=== PATIENT | female | born 1960 | race Caucasian/White ===

== ENCOUNTER → 2019-12-22 | Outpatient (CLI) | payer OTHER, SELFPAY ==
[2019-12-22 08:52] LABS: Hemoglobin A1c 6.3 % (4.2-6.3)
[2019-12-22 09:25] LABS: ALB/GLOB Ratio 0.9 RATIO (0.9-2.4); AST(SGOT) 21 U/L (15-37); Alanine Aminotransfer ALT/SGPT 26 U/L (13-56); Albumin, Serum 4.1 g/dL (3.2-5.0); Alkaline Phosphatase 94 U/L (45-117); Anion Gap 4 (5-15); BUN 25 mg/dL (7-18); BUN/Creat Ratio 27.4 RATIO (10-20); Calcium,Total 8.9 mg/dL (8.5-10.1); Chloride 106 mmol/L (98-107); Cholesterol 270 mg/dL (200); Creatinine, Serum 0.91 mg/dL (0.55-1.02); EST Glomerular Filtration Rate 67 mL/min (>60); Est Glom Filt Rate - Afr Amer 81 mL/min (>60); Globulin 4.7 g/dL (2.2-4.2); Glucose 105 mg/dL (74-106); High Density Lipoprotein 47 mg/dL; Protein, Total 8.8 g/dL (6.4-8.2); Sodium Level 140 mmol/L (136-145); Triglycerides 125 mg/dL; Very Low Density Lipoprotein 25 mg/dL (5-40)
== END | disposition home or self-care (01) ==
PROVIDERS: PCP Family Medicine; Referring Provider Family Medicine; Visit Provider Family Medicine
DX: Z00.00 Encounter for general adult medical examination without abnormal findings (principal)
CPT/HCPCS: 36415; 80053; 80061; 83036; 84443

== ENCOUNTER → 2020-03-01 | Outpatient (CLI) | payer OTHER, SELFPAY ==
[2020-03-01 11:03] LABS: Cholesterol 242 mg/dL (200); High Density Lipoprotein 45 mg/dL; Thyroid Stim Hormone (TSH) 0.59 uIU/mL (0.358-3.74); Triglycerides 159 mg/dL; Very Low Density Lipoprotein 32 mg/dL (5-40)
== END | disposition home or self-care (01) ==
LOC: LAB 08:54
PROVIDERS: PCP Family Medicine; Referring Provider Family Medicine; Visit Provider Family Medicine
DX: E03.4 Atrophy of thyroid (acquired) (principal); E78.00 Pure hypercholesterolemia, unspecified
CPT/HCPCS: 36415; 80061; 84443

== ENCOUNTER 2021-06-25 11:26 | Emergency (ER) | payer OTHER, SELFPAY ==
[2021-06-25 11:27] VITALS: BP 132/78; PULSE 83; RESP 16; TEMP 36.7; O2SAT 82; BMI 38.2
[2021-06-25 11:36] VITALS: O2SAT 92
--- NOTE | 2021-06-25 12:41 | EKG12_ITS ---
Test Reason : Blood Pressure : / mmHG Vent. Rate : 074 BPM Atrial Rate : 074 BPM P-R Int : 184 ms QRS Dur : 084 ms QT Int : 436 ms P-R-T Axes : 005 -14 014 degrees QTc Int : 483 ms Normal sinus rhythm Poor R wave progression Confirmed by KOLBY YOUNG, RODERICK ([id number]), photography editor DUKE GUTIERRES ([id number]) on 06/29/2021 11:45:13 AM Referred By: NIESHA Confirmed By:RODERICK JARRETT MD
--- NOTE | 2021-06-25 12:57 | NURSING ---
no old ekgs
[2021-06-25 13:02] LABS: Absolute Lymphocyte Count 1.12 X10^3/uL (0.83-4.51); Absolute Neutrophil Count 2.6 X10^3/uL (2.0-7.7); Basophil# 0.02 X10^3/uL; Basophil% 0.5 % (0-1); Hematocrit 41.7 % (37-47); Hemoglobin 13.8 g/dL (12.0-15.0); Lymphocyte # 1.12 X10^3/ul (0.83-4.51); Lymphocyte % 27.9 % (19-41); Mean Corp Hgb Conc 33.1 g/dL (32-36); Mean Corpuscular Volume 93.7 fL (81-99); Mean Platelet Vol. 11.5 fl (6.2-12.0); Monocyte# 0.28 X10^3/uL; NRBC Flagged by Analyzer 0 % (0-5); Neutrophil # 2.55 X10^3/uL (2.7-7.7); Neutrophil % 63.6 % (47-70); POSITIVE MORPHOLOGY YES; Platelet Count 114 K/mm3 (150-450); RBC Distribution Width CV 12.9 % (11.6-14.6); Red Blood Count 4.45 M/mm3 (4.2-5.4)
[2021-06-25 13:13] LABS: Anion Gap 4 (5-15); BUN 19 mg/dL (7-18); Calcium,Total 8.8 mg/dL (8.5-10.1); Chloride 101 mmol/L (98-107); Creatinine, Serum 0.95 mg/dL (0.55-1.02); EST Glomerular Filtration Rate 63 mL/min (>60); Est Glom Filt Rate - Afr Amer 77 mL/min (>60); Estimated Creatinine Clearance 51.44 ml/min; Glucose 108 mg/dL (74-106); Magnesium 2.1 mg/dL (1.6-2.6); Potassium 3.6 mmol/L (3.5-5.1); Sodium Level 134 mmol/L (136-145); Troponin-I HS 7 pg/mL (3.0-54.0)
[2021-06-25 13:14] LABS: Differential Indicated SCAN CRITERIA MET
[2021-06-25 13:22] LABS: Differential Comment SCANNED
[2021-06-25 13:23] LABS: Reactive Lymphocyte 1+
[2021-06-25 13:28] LABS: BNP,B-Type NATRIURETIC PEPTIDE 22.6 pg/mL (0-100)
--- NOTE | 2021-06-25 13:51 | RAD_ITS ---
STUDY: X-RAY CHEST REASON FOR EXAM: Female, 61 years old. Cough and weakness. TECHNIQUE: Single AP portable view of the chest. COMPARISON: None. FINDINGS: EKG electrodes are seen. Patchy bibasilar infiltrates. There is no demonstrated pleural abnormality. Normal size heart. Normal mediastinum and duncan. Normal visualized pulmonary arteries. Normal visualized aortic arch and descending thoracic aorta. Normal visualized thoracic spine. Normal visualized ribs, clavicles, and shoulders. There is no demonstrated abnormality of the visualized soft tissue structures of the upper abdomen. RAD/Chest 1 View (Portable) IMPRESSION: Patchy bibasilar infiltrates. Electronically Signed: Cosmo Humphrey MD at 14:19 EDT , Service support ,
[2021-06-25] MEDS: dexAMETHasone 10 MG/ML Vial IV (13:52)
[2021-06-25] MEDS: 0.9% Normal Saline 1,000 ML 999 ML IV (13:52)
[2021-06-25 13:55] VITALS: BP 97/59; PULSE 72; RESP 16; O2SAT 91
--- NOTE | 2021-06-25 14:44 | EDS_ITS ---
HPI History of Present Illness Chief Complaint: General Illness Narrative Narrative: Patient is a 61-year-old female who states for about 10 days now she has had congestion with cough. She reports she has had worsening shortness of breath without joint aches/myalgias and mild confusion. She denies any known sick exposures a history of lung disorder but with her worsening symptoms presents for evaluation. PFSH PFSH Home Medications dexamethasone [Decadron] 6 mg PO DAILY #10 tab 06/25/21 [Rx Last Taken Unknown] doxycycline hyclate 100 mg PO BID #20 tab 06/25/21 [Rx Last Taken Unknown] Allergy/AdvReac Type Severity Reaction Status Date / Time No Known Allergies Allergy Verified 06/25/21 11:31 Surgical History (Updated 06/25/21 @ 13:58 by Benedicto García) History of Social History Smoking Status: Never smoker ROS ROS ED Constitutional Constitutional ED: Denies chills or fever(s) ENT ENT ED: Denies sore throat Cardiovascular Cardiovascular: Denies chest pain Respiratory/Chest Respiratory/Chest: Reports cough and dyspnea Gastrointestinal Gastrointestinal: Denies abdominal pain, diarrhea, nausea or vomiting Genitourinary Genitourinary ED: Denies dysuria Musculoskeletal Musculoskeletal: Reports arthralgias and myalgias Integumentary Denies rash Neurologic Neurologic: Denies headache(s) Hematologic/Lymphatic Hematologic/Lymphatic: Denies easy bleeding or easy bruising EXAM Physical Exam Const Vital Signs: 06/25/21 11:27 06/25/21 11:36 06/25/21 13:55 Temperature 98.1 F Temperature Source Temporal Pulse Rate 83 72 Respiratory Rate 16 16 Blood Pressure 132/78 H 97/59 L Blood Pressure Mean 96 71 Pulse Ox 82 92 91 Oxygen Delivery Method Room Air Nasal Cannula Nasal Cannula Oxygen Flow Rate (L/min) 4 3 Positive well nourished and well developed General Appearance ED: well developed HEENT Reports moist mucous membranes HEENT Narrative: No tongue or lip swelling no oral lesions no airway edema or compromise. There is cobblestoning noted in the posterior pharynx consistent with sinus drainage Eyes PERRL and EOMs intact bilaterally Neck supple and no JVD Neck Narrative: Positive anterior cervical lymphadenopathy Chest Wall inspection of chest normal Resp Resp Narrative: Breath sounds are diminished throughout with faint expiratory wheeze and rhonchi in bilateral bases Cardio regular rate and regular rhythm GI normal to inspection, nondistended, normoactive bowel sounds, non-tender and non-distended Auscultation: normoactive bowel sounds Palpation: soft Extremity normal to inspection Extremity Narrative: No asymmetric edema no pitting edema negative Homans' sign bilaterally Neuro oriented x3 and CN's II-XII intact bilaterally Sensorium / Orientation: alert Psych mental status grossly normal Skin no rashes or lesions noted MDM MDM MDM Narrative Medical decision making narrative: Patient presented to the ER afebrile but as low as 82% on room air. Her constellation of symptoms is consistent with an infection mainly Covid and therefore basic work-up was obtained. EKG was sinus rhythm she had no elevation to her troponin. Her white count is technically low at 4 but she does not have any further changes to suggest acute sepsis. Patient was placed on nasal cannula oxygen and between 2 and 4 L this brought her saturations up to 96 to 98%. Therefore at this time as she does not have c hanges to suggest acute coronary injury or septicemia she can be prescribed oxygen for home as well as antibiotics and can return if symptoms fail to improve. Lab Data Labs: Laboratory Results - last 24 hr 06/25/21 06/25/21 06/25/21 11:55 11:55 11:55 WBC 4.0 L RBC 4.45 Hgb 13.8 Hct 41.7 MCV 93.7 MCH 31.0 MCHC 33.1 RDW Std Deviation 44.0 H RDW Coeff of Obey 12.9 Plt Count 114 L MPV 11.5 Immature Gran % (Auto) 1.000 H Neut % (Auto) 63.6 Lymph % (Auto) 27.9 [place] % (Auto) 7.0 Eos % (Auto) 0.0 Baso % (Auto) 0.5 Absolute Neuts (auto) 2.6 Absolute Lymphs (auto) 1.12 Nucleated RBC % 0 Differential Comment SCANNED Diff Path Review May foll Reactive Lymphocytes 1+ Sodium 134 L Potassium 3.6 Chloride 101 Carbon Dioxide 29.0 Anion Gap 4 L BUN 19 H Creatinine 0.95 Estim Creat Clear Calc 51.44 Est GFR (MDRD) Af Amer 77 Est GFR (MDRD) Non-Af 63 BUN/Creatinine Ratio 20.0 Glucose 108 H Calcium 8.8 Magnesium 2.1 Troponin I High Sens 7 B-Natriuretic Peptide 22.6 Radiography Diagnostic Testing: Radiology Impression Chest X-Ray 06/25/21 13:51 IMPRESSION: Patchy bibasilar infiltrates. Electronically Signed: Cosmo Humphrey MD at 14:19 EDT , Service support , Discharge Plan Triage Chief Complaint: General Illness ED Provider: Nahid Méndez Dx/Rx/DC Orders Clinical Impression: Pneumonia, Hypoxia Instructions: ED Pneumonia (Adult) Prescriptions: New doxycycline hyclate 100 mg tablet 100 mg PO BID Qty: 20 RF: 0 dexamethasone [Decadron] 6 mg tablet 6 mg PO DAILY Qty: 10 RF: 0 Primary Care Provider: Amos Buenrostro Referrals: Amos Buenrostro MD [Primary Care Provider] - Disposition Disposition: Home, Self Care
[2021-06-25 14:57] VITALS: BP 138/79; PULSE 88; RESP 19; O2SAT 95
[2021-06-25] MEDS: Ceftriaxone 1 GM/50 ML BAG IV (14:57)
--- NOTE | 2021-06-25 15:43 | CM.ED ---
Addendum entered by Joan Cantu 06/25/21 16:34: TONIA called Lisa at [facility] She said that the quickscript with the oxygen stats was enough documentation for need of oxygen. No other information needed. Joan ASHER Addendum entered by Joan Cantu 06/25/21 15:45: TONIA spoke to Lisa at [facility]. She said to provide patient with the oxygen tank from [facility] and have patient call [facility] when she gets home to schedule a tech to come to the house. TONIA received confirmation email from [facility]. No further SW needs at this time Plan: Home with home oxygen tank (from [facility]) Joan BROOKE Original Note: TONIA Note Referral Source: process safety engineer Reason: Home Oxygen SW called [place] at [facility] and made referral. TONIA faxed referral packet that includes face to face, demographics, insurance and oxygimetry stats. Confirmation email received. TONIA spoke to
[2021-06-25 15:48] VITALS: BP 105/69; PULSE 67; RESP 13; O2SAT 94
[2021-06-25 18:37] VITALS: BP 97/67; BP 97/97; PULSE 68; RESP 20; O2SAT 91
[2021-06-26 12:09] LABS: Pathologist Review Reviewed
--- NOTE | 2021-06-26 13:30 | CASEMGMT ---
[facility] COVID ED Home O2: This RN HIRAM attempted to contact pt regarding follow-up from pt's discharge from the ED with home O2. Nonidentifying voicemail was received and nondescript message left requesting a return call. Lety Demarco RN CM
--- NOTE | 2021-06-29 12:38 | CASEMGMT ---
[facility] ED COVID Home O2 Follow-up: This RN HIRAM attempted to conact pt via phone in follow-up to pt's discharge home from the ED with home O2. A nondescript voicemail was received and a nondescript voicmail message was left requesting a return call. Lety Demarco RN CM
== END 2021-06-25 18:38 | disposition home or self-care (01) ==
PROVIDERS: Emergency Provider Emergency Medicine; PCP Family Medicine
DX: J18.9 Pneumonia, unspecified organism (principal); R09.02 Hypoxemia
CPT/HCPCS: 71045; 80048; 83735; 83880; 84484; 85025; 87426; 93005; 96361; 96365; 96367; 96375; 99283; J7030; J7050; A4216

== ENCOUNTER → 2021-07-21 16:38 | Outpatient (CLI) | payer OTHER, SELFPAY ==
--- NOTE | 2021-07-21 16:42 | RAD_ITS ---
STUDY: X-RAY CHEST REASON FOR EXAM: Female, 61 years old. PNEUMONIA OF BOTH LOWER LOBES DUE TO INFECTIOUS ORGANISM TECHNIQUE: PA and lateral views of the chest. COMPARISON: 06/25/2021. FINDINGS: Diffusely increased interstitial markings without focal consolidation may represent infection the appropriate clinical setting. Normal size heart. Normal mediastinum and duncan. Normal visualized pulmonary arteries. Normal visualized aortic arch and descending thoracic aorta. Normal visualized thoracic spine. Normal visualized ribs, clavicles, and shoulders. There is no demonstrated abnormality of the visualized soft tissue structures of the upper abdomen. RAD/Chest PA and Lateral IMPRESSION: Diffusely increased interstitial markings without focal consolidation may represent infection the appropriate clinical setting. Electronically Signed: Wade Andrew MD at 20:17 EDT Tel , Service support ,
== END ==
PROVIDERS: PCP Family Medicine; Referring Provider Family Medicine; Visit Provider Family Medicine
DX: J18.9 Pneumonia, unspecified organism (principal)
CPT/HCPCS: 71046

== ENCOUNTER 2022-10-31 14:54 | Emergency (ER) | payer OTHER, SELFPAY ==
[2022-10-31 14:55] VITALS: BP 166/118; PULSE 84; RESP 18; TEMP 36.2; O2SAT 99; BMI 40.7
--- NOTE | 2022-10-31 15:05 | EKG12_ITS ---
Test Reason : CP Blood Pressure : / mmHG Vent. Rate : 071 BPM Atrial Rate : 071 BPM P-R Int : 170 ms QRS Dur : 074 ms QT Int : 440 ms P-R-T Axes : 027 -10 038 degrees QTc Int : 478 ms Normal sinus rhythm Septal infarct , age undetermined Abnormal ECG Confirmed by ESTEFANI YOUNG, JAMES ([id number]), editor house organ DUKE GUTIERRES ([id number]) on 11/02/2022 9:29:00 AM Referred By: INA Confirmed By:JAMES JARA MD
--- NOTE | 2022-10-31 15:07 | ED.VIS.DYS ---
HPI History of Present Illness Chief Complaint: Shortness of Breath Narrative Narrative: Patient presents with about a week of dyspnea, developed left sided chest pain 2 or 3 days ago and now she is noticing a rash. No fevers or chills. She did have chickenpox when she was a child. No recent fevers chills. No cough. There is no pleuritic component. No lower extremity edema or calf pain. No DVT or PE risk factors. PFSH PFSH Home Medications dexamethasone 6 mg tablet (Decadron) 6 mg PO DAILY #10 tabs 06/25/21 [Rx Last Taken Unknown] doxycycline hyclate 100 mg tablet 100 mg PO BID #20 tabs 06/25/21 [Rx Last Taken Unknown] acyclovir 800 mg tablet 800 mg PO 5X/DAY #35 tabs 10/31/22 [Rx Last Taken Unknown] oxycodone-acetaminophen 5 mg-325 mg tablet (Percocet) 1 tab PO Q6H PRN pain 3 days #12 tabs 10/31/22 [Rx Last Taken Unknown] Allergy/AdvReac Type Severity Reaction Status Date / Time No Known Allergies Allergy Verified 10/31/22 14:57 Surgical History History of Social History Smoking Status: Never smoker ROS ROS ED ROS Narrative Past medical history: None Medications: None Social history: Noncontributory Review of systems: All systems negative except as indicated General: No fever Eyes: No visual changes ENT: No upper airway congestion, normal voice Neck: No neck pain Cardiovascular: Left-sided chest pain as in HPI Respiratory: 1 week of dyspnea Gastrointestinal: No abdominal pain, nausea vomiting or diarrhea Genitourinary: No dysuria Musculoskeletal: Denies myalgias no difficulty with ambulation Skin: Left chest wall rash Neurological: No memory loss, confusion or any focal weakness Psych: No recent behavioral changes Hematologic: No easy bleeding or easy bruising EXAM Physical Exam Narrative Exam Narrative: Physical exam General: She appears relatively comfortable in the bed Head: Normocephalic, Atraumatic Eyes: Conjunctiva not pale ENT: Moist mucous membranes Neck: Supple, Nontender, No lymphadenopathy Cardiovascular: Regular rate, Regular rhythm Respiratory: No distress, CTA bilaterally Abdomen: Soft, Nontender, Nondistended Back: Nontender, Normal Inspection. Negative for: CVA tenderness Extremities: Nontender, No edema Skin: There is a dermatomal distribution vesicular rash consistent with shingles under her left breast extending to the backside in the thoracic region. Neurological: Alert, Normal Strength, Normal Sensation Psychological: Normal affect Const Vital Signs: 10/31/22 14:55 10/31/22 15:05 10/31/22 15:29 Temperature 97.2 F L Temperature Source Temporal Pulse Rate 84 Respiratory Rate 18 Respiratory Effort Normal Non-Labored Respiratory Depth Normal Respiratory Pattern Normal Blood Pressure 166/118 H Blood Pressure Mean 134 Pulse Ox 99 Oxygen Delivery Method Room Air Room Air Room Air MDM MDM MDM Narrative Medical decision making narrative: A. Problems addressed ( does not have to be diagnoses) Chest pain and shortness of breath Hypertension which was undiagnosed. B. Amount and/or complexity of the data 1. CBC, CMP, troponin ordered and unremarkable. I discussed the patient with who was in the room 2. Independent interpretation of test Telemetry: Sinus rhythm with a rate in the 70s without any ectopy on the monitor strip C. Patient was seen by me in the emergency department. I have considered the following differential diagnoses however I was able to exclude all of these through a thorough history and physical exam as well as laboratory testing: PE or any thromboembolic etiologies, myocardial infarction, aortic dissection, esophageal rupture, pneumothorax, musculoskeletal emergencies, upper abdominal pathologies such as pancreatitis, cholecystitis or choledocholithiasis, as well as ruptured bowel. I considered admission but after discussion with the patient we came to a mutual agreement that the patient is stable for discharge due to the following reasons: Heart score is: 1 PERC: Is negative Patient's exam is normal. History and physical point towards shingles. However because she had shortness of breath for 1 to 2 weeks before she noticed a rash I believe that it was reasonable to order tests to make sure there was not a cardiac or lung etiology to her symptoms. Patient has signs and symptoms consistent with shingles. I will treat her with opiate analgesics and acyclovir for home. Her cardiac work-up was unremarkable and I believe she is safe for discharge. Patient also hypertensive initially however after opiate analgesics her blood pressure went to 156/76, I believe because of her herpes zoster she was in quite a bit of pain which elevated her blood pressure. Regardless she is told to check her blood pressure at home over the next few weeks daily and write it down for her PCP. Lab Data Labs: Laboratory Results - last 24 hr 10/31/22 10/31/22 15:15 15:15 WBC 5.6 RBC 4.90 Hgb 15.0 Hct 45.5 MCV 92.9 MCH 30.6 MCHC 33.0 RDW Std Deviation 45.4 H RDW Coeff of Obey 13.4 Plt Count 205 MPV 9.8 Immature Gran % (Auto) 0.500 Neut % (Auto) 63.8 Lymph % (Auto) 19.2 [place] % (Auto) 10.0 Eos % (Auto) 5.4 H Baso % (Auto) 1.1 H Absolute Neuts (auto) 3.6 Absolute Lymphs (auto) 1.07 Nucleated RBC % 0 Sodium 139 Potassium 3.9 Chloride 107 Carbon Dioxide 26.0 Anion Gap 6 BUN 16 Creatinine 0.92 Estim Creat Clear Calc 52.45 Est GFR (MDRD) Af Amer 79 Est GFR (MDRD) Non-Af 65 BUN/Creatinine Ratio 17.3 Glucose 112 H Calcium 9.1 Troponin I High Sens < 3 L Radiography Chest X-Ray - ED: 1 View Diagnostic Testing: Chest x-ray 1 view read by me as normal no acute pathology normal lung garnett without any pneumonia. Normal cardiac silhouette. EKG Initial EKG: Comments: Sinus rhythm with a rate 71. Normal NC and QTc intervals. No acute ischemic changes. Interpreted by emergency Dr. Discharge Plan Triage Chief Complaint: Shortness of Breath ED Provider: Jong Jensen Dx/Rx/DC Orders Clinical Impression: Chest pain, Acute dyspnea, Shingles, Hypertension Instructions: ED Dyspnea, ED Shingles (Herpes Zoster) Prescriptions: New acyclovir 800 mg tablet 800 mg PO 5X/DAY Qty: 35 0RF oxycodone-acetaminophen [Percocet] 5-325 mg tablet 1 tab PO Q6H PRN (Reason: pain) 3 Days Qty: 12 0RF No Action doxycycline hyclate 100 mg tablet 100 mg PO BID Qty: 20 0RF dexamethasone [Decadron] 6 mg tablet 6 mg PO DAILY Qty: 10 0RF Primary Care Provider: Amos Buenrostro Referrals: Amos Buenrostro MD [Primary Care Provider] - 3-5 Days Disposition Disposition: Home, Self Care
[2022-10-31 15:21] LABS: Absolute Lymphocyte Count 1.07 X10^3/uL (0.83-4.51); Absolute Neutrophil Count 3.6 X10^3/uL (2.0-7.7); Basophil# 0.06 X10^3/uL; Basophil% 1.1 % (0-1); Eosinophils% 5.4 % (0-5); Hematocrit 45.5 % (37-47); Lymphocyte # 1.07 X10^3/ul (0.83-4.51); Lymphocyte % 19.2 % (19-41); Mean Corpuscular Hgb 30.6 pg (27.0-32.0); Mean Corpuscular Volume 92.9 fL (81-99); Mean Platelet Vol. 9.8 fl (6.2-12.0); Monocyte# 0.56 X10^3/uL; NRBC Flagged by Analyzer 0 % (0-5); Neutrophil # 3.56 X10^3/uL (2.7-7.7); Neutrophil % 63.8 % (47-70); Platelet Count 205 K/mm3 (150-450); RBC Distribution Width CV 13.4 % (11.6-14.6); RBC Distribution Width SD 45.4 fl (35.1-43.9); White Blood Count 5.6 K/mm3 (4.4-11.0)
[2022-10-31] MEDS: oxyCODONE 5 MG Tablet PO (15:23)
[2022-10-31] MEDS: Aspirin 81 MG TAB.CHEW 324 MG PO (15:23)
[2022-10-31] MEDS: Acyclovir 800 MG Tablet PO (15:24)
--- NOTE | 2022-10-31 15:30 | RAD_ITS ---
STUDY: X-RAY CHEST REASON FOR EXAM: Female, 62 years old. chest pain TECHNIQUE: Single AP portable view of the chest. COMPARISON: 07/21/2021 FINDINGS: Stable elevation right hemidiaphragm. The lungs are clear and expanded. There is no demonstrated pleural abnormality. Normal size heart. Normal mediastinum and duncan. Normal visualized pulmonary arteries. Normal visualized aortic arch and descending thoracic aorta. Normal visualized thoracic spine. Normal visualized ribs, clavicles, and shoulders. There is no demonstrated abnormality of the visualized soft tissue structures of the upper abdomen. RAD/Chest 1 View (Portable) IMPRESSION: No acute cardiopulmonary disease. No significant interval change. Electronically Signed: Breana Rosales MD at 15:59 EST Reading Location ID and State: , Service support ,
[2022-10-31 15:38] LABS: Anion Gap 6 (5-15); BUN 16 mg/dL (7-18); BUN/Creat Ratio 17.3 RATIO (10-20); Calcium,Total 9.1 mg/dL (8.5-10.1); Chloride 107 mmol/L (98-107); Creatinine, Serum 0.92 mg/dL (0.55-1.02); EST Glomerular Filtration Rate 65 mL/min (>60); Est Glom Filt Rate - Afr Amer 79 mL/min (>60); Estimated Creatinine Clearance 52.45 ml/min; Glucose 112 mg/dL (74-106); Potassium 3.9 mmol/L (3.5-5.1); Sodium Level 139 mmol/L (136-145); Troponin-I HS < 3 pg/mL (3.0-54.0)
[2022-10-31 15:44] VITALS: BP 156/76
[2022-10-31 15:46] VITALS: RESP 18
== END 2022-10-31 15:53 | disposition home or self-care (01) ==
LOC: ED 15:28
PROVIDERS: Emergency Provider Emergency Medicine; PCP Family Medicine; Visit Provider Emergency Medicine
DX: R07.9 Chest pain, unspecified (principal); R06.02 Shortness of breath; B02.9 Zoster without complications; I10 Essential (primary) hypertension; Z79.899 Other long term (current) drug therapy
CPT/HCPCS: 71045; 80048; 84484; 85025; 93005; 99284

== ENCOUNTER → 2022-11-13 | Outpatient (CLI) | payer OTHER, SELFPAY ==
[2022-11-13 09:57] LABS: Absolute Lymphocyte Count 2.23 X10^3/uL (0.83-4.51); Absolute Neutrophil Count 3.9 X10^3/uL (2.0-7.7); Basophil# 0.07 X10^3/uL; Eosinophil# 0.25 X10^3/uL; Eosinophils% 3.6 % (0-5); Hematocrit 45.2 % (37-47); Hemoglobin 14.5 g/dL (12.0-15.0); Lymphocyte # 2.23 X10^3/ul (0.83-4.51); Lymphocyte % 31.8 % (19-41); Mean Corp Hgb Conc 32.1 g/dL (32-36); Mean Corpuscular Hgb 30.2 pg (27.0-32.0); Mean Corpuscular Volume 94.2 fL (81-99); Mean Platelet Vol. 9.9 fl (6.2-12.0); Monocyte# 0.52 X10^3/uL; Monocyte% 7.4 % (0-10); NRBC Flagged by Analyzer 0 % (0-5); Neutrophil # 3.89 X10^3/uL (2.7-7.7); Neutrophil % 55.5 % (47-70); Platelet Count 236 K/mm3 (150-450); RBC Distribution Width CV 13.7 % (11.6-14.6)
[2022-11-13 10:15] LABS: Hemoglobin A1c 6.2 % (3.8-5.6)
[2022-11-13 10:44] LABS: ALB/GLOB Ratio 0.9 RATIO (0.9-2.4); AST(SGOT) 17 U/L (15-37); Alanine Aminotransfer ALT/SGPT 21 U/L (13-56); Albumin, Serum 4.1 g/dL (3.2-5.0); Alkaline Phosphatase 79 U/L (45-117); Anion Gap 9 (5-15); BUN 22 mg/dL (7-18); BUN/Creat Ratio 21.2 RATIO (10-20); Chloride 104 mmol/L (98-107); Cholesterol 303 mg/dL (200); Creatinine, Serum 1.04 mg/dL (0.55-1.02); EST Glomerular Filtration Rate 57 mL/min (>60); Est Glom Filt Rate - Afr Amer 69 mL/min (>60); Globulin 4.4 g/dL (2.2-4.2); Glucose 113 mg/dL (74-106); High Density Lipoprotein 45 mg/dL; Protein, Total 8.5 g/dL (6.4-8.2); Sodium Level 139 mmol/L (136-145); Triglycerides 165 mg/dL; Uric Acid 4.7 mg/dL (2.6-6.0); Very Low Density Lipoprotein 33 mg/dL (5-40)
== END | disposition home or self-care (01) ==
LOC: LAB 09:32
PROVIDERS: PCP Family Medicine; Visit Provider Family Medicine
DX: Z00.00 Encounter for general adult medical examination without abnormal findings (principal)
CPT/HCPCS: 36415; 80053; 80061; 83036; 84443; 84550; 85025

== ENCOUNTER → 2023-02-12 | Outpatient (CLI) | payer OTHER, SELFPAY ==
[2023-02-12 09:06] LABS: Thyroid Stim Hormone (TSH) 0.96 uIU/mL (0.358-3.74)
== END | disposition home or self-care (01) ==
LOC: LAB 08:17
PROVIDERS: PCP Family Medicine; Referring Provider Family Medicine; Visit Provider Family Medicine
DX: E03.4 Atrophy of thyroid (acquired) (principal)
CPT/HCPCS: 36415; 84443

== ENCOUNTER → 2024-02-03 | Outpatient (CLI) | payer OTHER, SELFPAY ==
[2024-02-03 09:21] LABS: ALB/GLOB Ratio 1.2 RATIO (0.9-2.4); AST(SGOT) 24 U/L (15-37); Alanine Aminotransfer ALT/SGPT 31 U/L (13-56); Albumin, Serum 4.3 g/dL (3.2-5.0); Alkaline Phosphatase 81 U/L (45-117); Anion Gap 4 (5-15); BUN 20 mg/dL (7-18); BUN/Creat Ratio 25.4 RATIO (10-20); Calcium,Total 9.1 mg/dL (8.5-10.1); Chloride 105 mmol/L (98-107); Cholesterol 162 mg/dL (200); Creatinine, Serum 0.79 mg/dL (0.55-1.02); EST Glomerular Filtration Rate 78 mL/min (>60); Est Glom Filt Rate - Afr Amer 95 mL/min (>60); Globulin 3.7 g/dL (2.2-4.2); Glucose 110 mg/dL (74-106); High Density Lipoprotein 49 mg/dL; Potassium 4.4 mmol/L (3.5-5.1); Sodium Level 140 mmol/L (136-145); Thyroid Stim Hormone (TSH) 2.66 uIU/mL (0.358-3.74); Triglycerides 171 mg/dL; Very Low Density Lipoprotein 34 mg/dL (5-40)
[2024-02-03 09:57] LABS: Microalbumin,Random Urine 11.4 mg/L (NO RANGE EST.); Microalbumin:Creatinine Ratio 8.7 mg/g CRE (<30 mg/g CRE)
== END | disposition home or self-care (01) ==
LOC: LAB 08:23
PROVIDERS: PCP Family Medicine; Referring Provider Family Medicine; Visit Provider Family Medicine
DX: E11.9 Type 2 diabetes mellitus without complications (principal); E78.5 Hyperlipidemia, unspecified; E03.9 Hypothyroidism, unspecified
CPT/HCPCS: 36415; 80053; 80061; 82043; 82570; 84439; 84443